=== PATIENT | female | born 1945 | race Caucasian/White ===

== ENCOUNTER → 2020-04-15 09:39 | Outpatient (CLI) | payer OTHER, SELFPAY ==
--- NOTE | ~2020-04-15 | XR_ITS ---
EXAMINATION: XR chest 2V DATE: 04/15/2020 09:53 INDICATION: Shortness of breath. TECHNIQUE: Frontal and lateral views of the chest were obtained. COMPARISON: Chest 2 views 04/26/2018, chest CT 03/26/2009 FINDINGS: There is no pneumonia, pleural effusion, or pneumothorax. Cardiomegaly is noted. IMPRESSION: 1. Cardiomegaly. Reviewed, dictated and finalized at location B. IMPRESSION: 1. Cardiomegaly.
== END ==
PROVIDERS: PCP Family Medicine; Visit Provider Family Medicine
DX: R06.02 Shortness of breath (principal); I51.7 Cardiomegaly
CPT/HCPCS: 71046

== ENCOUNTER → 2020-06-10 11:44 | Outpatient (CLI) | payer OTHER, SELFPAY ==
--- NOTE | ~2020-06-10 | MM_ITS ---
EXAMINATION: MM screening rick BI w miles HISTORY: Screening mammogram TECHNIQUE: Craniocaudal and mediolateral oblique 3-D tomosynthesis images were obtained and synthetic 2-D images were generated. CAD analysis was submitted and interpreted. COMPARISON: , , 09/15/2016 bilateral digital screening mammogram examinations BREAST PARENCHYMAL COMPOSITION: The breasts are heterogeneously dense, which may obscure small masses . FINDINGS: Occasional bilateral benign calcifications. There is no evidence of suspicious mass, calcif ication, or architectural distortion to suggest malignancy in either breast. There has been no suspic ious interval change. IMPRESSION: 1. No mammographic evidence of malignancy. 2. Recommend routine screening mammography in one year. BI-RADS Category 2: Benign finding(s). Reviewed, dictated and finalized at location A.
== END ==
PROVIDERS: PCP Family Medicine; Visit Provider Family Medicine
DX: Z12.31 Encounter for screening mammogram for malignant neoplasm of breast (principal)
CPT/HCPCS: 77063; 77067

== ENCOUNTER 2020-06-15 15:06 | Outpatient (CLI) | payer OTHER, SELFPAY ==
--- NOTE | ~2020-06-15 | US_ITS ---
EXAMINATION: US carotid duplex BI DATE: 06/15/2020 15:40 INDICATION: Presyncope TECHNIQUE: Grayscale, color Doppler, and pulsed Doppler images of the cervical carotid arteries were obtained. The degree of vessel stenosis is placed in one of the following categories: normal, <50%, 5 0-69%, >=70% but less than near-occlusion, near-occlusion, or total occlusion. Note that percent sten osis relative to normal distal artery lumen diameter is indirectly measured from velocity measurement s as described by Orestes, et al. Radiology 2003; [id number]. Notes: Normal: Peak systolic velocity <125 centimeters/sec and no plaque <50%. Peak systolic velocity <125 ( EDV <40; ICA/CCA PSV ratio <2.0; used these factors only a tandem lesions or low cardiac output or co ntralateral disease) 50-69 %: PSV 125-230 (EDV 40-100; ratio 2-4) >= 70% but less than near occlusion: PSV greater than 230 (EDV > 100; ratio> 4.0) Near Occlusion: PSV that is variable; markedly narrowed lumen Occlusion: Absent flow on color/spectral Doppler and no lumen on ramírez scale. COMPARISON: None. FINDINGS: RIGHT: The right common carotid artery (CCA) peak systolic velocity (PSV) is 122 cm/s. The right internal ca rotid artery (ICA) PSV is 123 cm/s. The right ICA end-diastolic velocity (EDV) is 12 cm/s. The right ICA/CCA PSV ratio is 1.0. The external carotid artery (ECA) PSV is 148 cm/s. There is antegrade flow in the right vertebral artery. LEFT: The left CCA PSV is 103 cm/s. The left ICA PSV is 1:15 cm/s. The left ICA EDV is 19 cm/s. The left IC A/CCA PSV ratio is 1.1. The ECA PSV is 107 cm/s. There is antegrade flow in the left vertebral arter y. IMPRESSION: 1. Less than 50% stenosis in the right internal carotid artery by sonographic criteria. 2. Less than 50% stenosis in the left internal carotid artery by sonographic criteria. Reviewed, dictated and finalized at location A. IMPRESSION: 1. Less than 50% stenosis in the right internal carotid artery by sonographic elizabeth melendez. 2. Less than 50% stenosis in the left internal carotid artery by sonographic rosas epps.
== END 2020-06-15 15:07 | disposition home or self-care (01) ==
LOC: ANHIMG 15:08
PROVIDERS: PCP Family Medicine; Visit Provider Family Medicine
DX: R42 Dizziness and giddiness (principal); I65.23 Occlusion and stenosis of bilateral carotid arteries
CPT/HCPCS: 93880

== ENCOUNTER 2020-11-27 09:37 | Emergency (ER) | payer OTHER, SELFPAY ==
--- NOTE | 2020-11-27 09:47 | ED.SKABFB ---
HPI - Skin/Abscess/Foreign Bdy General Chief complaint: Skin/Abscess/Foreign Body Stated complaint: Rash Time Seen by Provider: 11/27/20 09:47 Source: patient and RN notes reviewed Mode of arrival: ambulatory Limitations: no limitations History of Present Illness HPI narrative: 75 yo female presents to the [facility] with a rash that started last Monday, 5 days ago. Patient states I think I have poison hardik. Patient has a red raised warm area to the left inner thigh, states that that is where the rash started. Has multiple red raised areas less than 1 cm in diameter across abdomen. Also has pink flat papules on the right chin into the cheek area. Patient denies any painful areas. States they itch occasionally. Has used calamine on the legs which she said made it better. Denies any new creams, lotions, detergents. No new close, no new exposures Related Data Home Medications Medication Instructions Recorded Confirmed amlodipine 1.5 mg PO DAILY 11/27/20 11/27/20 losartan 1 mg PO DAILY 11/27/20 11/27/20 timolol maleate drp 11/27/20 travoprost drp 11/27/20 Allergies Allergy/AdvReac Type Severity Reaction Status Date / Time No Known Allergies Allergy Uncoded 11/27/20 09:48 Review of Systems Review of Systems: Narrative: CONSTITUTIONAL: Denies fever, chills, or sweats. EYES: Denies visual changes, redness, or discharge. CARDIOVASCULAR: Denies chest pain, palpitations, or edema. RESPIRATORY: Denies cough or dyspnea. SKIN: Reports rash with occasional itching. MUSCULOSKELETAL: Denies back pain, joint pain, or myalgia. NEUROLOGIC: Denies headache, numbness, or weakness. PSYCHIATRIC: Denies anxiety or depression. All other systems reviewed are negative, except as documented in HPI. [facility] Family History Family History (Updated 03/18/16 @ 23:19 by DOCTOR UNKNOWN) Mother Hypertension Carcinoma of colon Family history of dementia Father Family history of diabetes mellitus in first degree relative Other Family history of renal failure Social History Social History Smoking status: Never smoker Alcohol intake: current Gender identity (if verbalized by the patient): Female Comments At the time of my signature, I reviewed and agree with the nursing past medical, surgical, social, and family history. There is no relevant family history pertinent to the patient complaint. Exam Narrative: Exam Narrative: GENERAL: This is a well-nourished, well-developed patient, in no apparent distress. HEAD: normocephalic, atraumatic. EYES: PERRL. Sclera clear/white. Vision is grossly intact. EARS: External ears normal NOSE: External nose normal with no obvious nasal discharge, nares without redness, no rhinorrhea. THROAT: Mucous membranes moist, posterior pharynx clear. NECK: Neck supple, non-tender without lymphadenopathy, masses or thyromegaly. CARDIOVASCULAR: Regular rate and rhythm without murmurs, gallops, or rubs. RESPIRATORY: Clear to auscultation. Breath sounds equal bilaterally. No wheezes, rales, or rhonchi. GASTROINTESTINAL: Abdomen soft, non-tender, nondistended. Bowel sounds are active. No hepato-splenomegaly, or palpable masses. No guarding. SKIN: warm, dry, intact. 2 rashes noted that appeared mildly different. Left inner upper thigh 4 cm diameter red warm raised area appears cellulitic. Across abdomen red raised bumps possible insect bites, are not pustules or vesicular, less than half centimeter in diameter. Right chin, cheek area pink mildly raised irregular shaped approximately 1 cm in diameter rash. NEURO: awake, alert, and oriented to person, place and time. There were no obvious focal neurologic abnormalities. EXTREMITIES: No joint tenderness, effusion, or edema noted. BACK: Nontender without deformity. Course Vital Signs Vital signs: Vital Signs Temperature 97.0 F L 11/27/20 09:54 Pulse Rate 68 11/27/20 09:54 Respiratory Rate 18
[2020-11-27 09:54] VITALS: BP 129/95; PULSE 68; RESP 18; TEMP 36.1; O2SAT 100
== END 2020-11-27 10:18 | disposition home or self-care (01) ==
PROVIDERS: Emergency Provider Nurse Practitioner; PCP Student in an Organized Health Care Education/Training Program
DX: L03.115 Cellulitis of right lower limb (principal); R21 Rash and other nonspecific skin eruption; I10 Essential (primary) hypertension; H40.9 Unspecified glaucoma
CPT/HCPCS: 99213; G0463

== ENCOUNTER 2020-11-30 13:54 | Emergency (ER) | payer OTHER, SELFPAY ==
[2020-11-30 14:12] VITALS: BP 167/65; PULSE 75; RESP 16; TEMP 36.4; O2SAT 100
--- NOTE | 2020-11-30 14:14 | ED.SKABFB ---
HPI - Skin/Abscess/Foreign Bdy General Chief complaint: Skin/Abscess/Foreign Body Stated complaint: Rash Time Seen by Provider: 11/30/20 14:14 History of Present Illness HPI narrative: The aging patient, on several medication, presents for cellulitis recheck. Patient states she was seen here about a half a week ago and given Bactrim, prednisone and steroid cream for diagnosis of cellulitis. Specifically, she had a palm sized patch of redness on her left inner thigh, which has actually improved since. But she had a impetiginous outbreak on her right face which has gotten slightly worse. No fever, presyncope, palpitations, streaking, discharge, induration/abscess; there is associated macular papular discrete, blanching eruption on her trunk coincident with this. Discussed the next stronger option is for hospital visit or parenteral/IM meds here-which the patient desires. Advised to go to higher-level care facility to higher level testing if not improved by tomorrow, because for early diagnosis of serious problems-- clear specific symptoms do not develope until later. Patient responds she has gotten a PMD appointment for 2 days from now Related Data Home Medications Medication Instructions Recorded Confirmed amlodipine 1.5 mg PO DAILY 11/27/20 11/27/20 losartan 1 mg PO DAILY 11/27/20 11/27/20 timolol maleate drp 11/27/20 travoprost drp 11/27/20 Otc Luicin 11/30/20 Otc Vit. D 11/30/20 hydrochlorothiazide 11/30/20 Allergies Allergy/AdvReac Type Severity Reaction Status Date / Time No Known Allergies Allergy Uncoded 11/27/20 09:48 Review of Systems Review of Systems: Narrative: General/Constitutional: No weight loss,fever Eyes: N0: Redness,discharge Ears/Nose/Throat: No: Epistaxis,ear discharge Respiratory: Denies: Hemoptysis Gastrointestinal: No Vomiting, Bleeding-rectal Skin: No Lumps, REPORTS eruption Neurologic: No Focal Weakness,Sz Hematologic: Denies: Petechiae/Purpura Psychiatric: No: Suicida ideationl All Other Systems: Reviewed and Negative [facility] Family History Family History (Updated 03/18/16 @ 23:19 by DOCTOR UNKNOWN) Mother Hypertension Carcinoma of colon Family history of dementia Father Family history of diabetes mellitus in first degree relative Other Family history of renal failure Social History Social History Smoking status: Never smoker Alcohol intake: current Gender identity (if verbalized by the patient): Female Comments At time of signature, agree with nursing past medical, surgical, social and family history. There is no relevant family history pertinent to the presenting complaint Exam Narrative: Exam Narrative: General Appearance: Well appearing, No distress Conjunctiva clear Ears: External ear normal Nose: Normal nose Mouth/Throat: Impetiginous eruption on right jawline and cheek; normal lips, Supple Skin: Warm, Dry; blanching, maculopapular eruption of lower trunk/abdomen Respiratory: Airway patent, No respiratory distress Abdomen: Soft, Non-tender, Musculoskeletal: Healing palm-sized area of cellulitis to left inner thigh without induration/abscess/, streaking ; full ROM Neurological: A&O x3, CN II-X intact Psychiatric: Normal mood, Normal affect Course Vital Signs Vital signs: Vital Signs Temperature 97.6 F 11/30/20 14:12 Pulse Rate 75 11/30/20 14:12 Respiratory Rate 16 11/30/20 14:12 Blood Pressure 167/65 H 11/30/20 14:12 Pulse Oximetry 100 11/30/20 14:12 Temperature 97.6 F 11/30/20 14:12 Pulse Rate 75 11/30/20 14:12 Respiratory Rate 16 11/30/20 14:12 Blood Pressure 167/65 H 11/30/20 14:12 Pulse Oximetry 100 11/30/20 14:12 Discharge Plan Discharge Clinical Impression: Infectious folliculitis, History of cellulitis Patient Disposition: Home, Self-Care Condition: Stable Instructions: Impetigo (ED) Additional Instructions: You
[2020-11-30] MEDS: cefTRIAXone 1 GM VIAL 0.75 GM IM (14:28)
--- NOTE | 2020-11-30 14:36 | PC.NURSE ---
rash to right side of lower face, right arm, right hand, and right hip area that is reddened splotchy, intermittently itchy, and irritating. has rash b/t inner upper thighs that is circular, reddened, about 3 cm in diameter.
== END 2020-11-30 15:00 | disposition home or self-care (01) ==
PROVIDERS: Emergency Provider Emergency Medicine; PCP Student in an Organized Health Care Education/Training Program
DX: L73.9 Follicular disorder, unspecified (principal); Z87.2 Personal history of diseases of the skin and subcutaneous tissue; I10 Essential (primary) hypertension; M19.90 Unspecified osteoarthritis, unspecified site; H40.9 Unspecified glaucoma; Z95.0 Presence of cardiac pacemaker
CPT/HCPCS: 96372; 99213; G0463; J0696

== ENCOUNTER → 2021-10-26 12:36 | Outpatient (CLI) | payer OTHER, SELFPAY ==
--- NOTE | ~2021-10-26 | MM_ITS ---
EXAMINATION: MM screening rick BI w miles HISTORY: Screening TECHNIQUE: Craniocaudal and mediolateral oblique 3-D tomosynthesis images were obtained and synthetic 2-D images were generated. CAD analysis was submitted and interpreted. COMPARISON: Comparison to multiple prior studies sequentially, with oldest reviewed study dated 02/2015. BREAST PARENCHYMAL COMPOSITION: The breasts are heterogenously dense, which may obscure small masses FINDINGS: There is developing asymmetries in the subareolar and outer aspect of the left breast. The right breast is stable without evidence for malignancy. IMPRESSION: 1. Developing left breast asymmetries. 2. Additional mammographic views and possible breast ultrasound are recommended. BI-RADS Category 0: Incomplete: Needs additional imaging evaluation. Reviewed, dictated and finalized at location A. E SETTER IMPRESSION: 1. Developing left breast asymmetries. 2. Additional mammographic views and possible breast ultrasound are recommended . BI-RADS Category 0: Incomplete: Needs additional imaging evaluation.
== END ==
PROVIDERS: Visit Provider Student in an Organized Health Care Education/Training Program
DX: Z12.31 Encounter for screening mammogram for malignant neoplasm of breast (principal); R92.8 Other abnormal and inconclusive findings on diagnostic imaging of breast
CPT/HCPCS: 77063; 77067

== ENCOUNTER → 2021-11-25 07:55 | Outpatient (CLI) | payer OTHER, SELFPAY ==
--- NOTE | ~2021-11-25 | MMUS_ITS ---
EXAMINATION: MM diagnostic rick LT w miles, US breast LT complete HISTORY: Follow-up left breast asymmetries TECHNIQUE: Additional 3-D tomosynthesis images of the left breast were performed and synthetic 2-D im ages were generated. CAD analysis was submitted and interpreted. High resolution complete left breast ultrasound was performed. COMPARISON: Comparison to multiple prior studies sequentially, with oldest reviewed study dated 08/31. BREAST PARENCHYMAL COMPOSITION: Breast composed of scattered areas of fibroglandular density FINDINGS: MAMMOGRAPHIC FINDINGS: There are no discrete masses, suspicious cluster of calcifications or architectural distortion of the left breast with spot compression or mediolateral views. ULTRASOUND: Complete US of all 4 quadrants of the the left and retroareolar region was reviewed. At 12:00, 2 cm f rom the nipple there is an oval circumscribed hypoechoic mass measuring 10 x 5 x 3 mm with central ec hogenicity possibly representing an intramammary lymph node. No posterior shadowing or internal vascu larity. At 1:00, 4 cm from the nipple there is a 5 mm cyst. At 3:00, 5 cm from the nipple there is an oval circumscribed hypoechoic mass with echogenic hilum measuring 5 mm, consistent with intramammary lymph node. IMPRESSION: 1. Probable benign findings of the left breast. 2. Recommend 6 month follow-up diagnostic left mammogram and ultrasound BI-RADS category 3, probably benign findings. Reviewed, dictated and finalized at location A. IMPRESSION: 1. Probable benign findings of the left breast. 2. Recommend 6 month follow-up diagnostic left mammogram and ultrasound BI-RADS category 3, probably benign findings.
== END ==
PROVIDERS: PCP Student in an Organized Health Care Education/Training Program; Visit Provider Registered Nurse
DX: R92.8 Other abnormal and inconclusive findings on diagnostic imaging of breast (principal)
CPT/HCPCS: 76641; 77061; 77065; G0279

== ENCOUNTER → 2022-05-26 09:14 | Outpatient (CLI) | payer OTHER, SELFPAY ==
--- NOTE | ~2022-05-26 | MMUS_ITS ---
EXAMINATION: MM diagnostic rick LT w miles, US breast LT limited HISTORY: Six-month follow-up for probably benign left breast masses TECHNIQUE: Craniocaudal, mediolateral, and mediolateral oblique 3-D tomosynthesis images of the left breast were performed and synthetic 2-D images were generated. CAD analysis was submitted and interpr eted. High resolution limited left breast ultrasound was performed. COMPARISON: 11/25/2021, 10/26/2021, 06/10/2020, 12/13/2018 BREAST PARENCHYMAL COMPOSITION: The breasts are heterogeneously dense, which may obscure small masses . FINDINGS: MAMMOGRAPHIC FINDINGS: No suspicious mass, calcification, or architectural distortion are identified to suggest malignancy. There has been no suspicious interval change. ULTRASOUND: There is a stable 9 mm right 2 mm oval, circumscribed, parallel, hypoechoic mass with no posterior fe atures or internal vascularity at the 12:00 location 2 cm from the nipple. A 5 mm x 2 mm mass with si milar sonographic features is seen at the 1:00 location 4 cm from the nipple. There is a stable 5 mm x 2 mm mass with central echogenicity at the 3:00 location 5 cm from the nipple, consistent with an i ntramammary lymph node. IMPRESSION: 1. Stable, probably benign left breast masses. 2. Recommend 6 month follow-up diagnostic mammogram and left breast ultrasound. BI-RADS category 3, probably benign findings. Reviewed, dictated and finalized at location B. IMPRESSION: 1. Stable, probably benign left breast masses. 2. Recommend 6 month follow-up diagnostic mammogram and left breast ultrasound. BI-RADS category 3, probably benign findings.
== END ==
PROVIDERS: PCP Student in an Organized Health Care Education/Training Program; Visit Provider Student in an Organized Health Care Education/Training Program
DX: R92.8 Other abnormal and inconclusive findings on diagnostic imaging of breast (principal)
CPT/HCPCS: 76642; 77061; 77065; G0279

== ENCOUNTER → 2022-12-19 09:20 | Outpatient (CLI) | payer OTHER, SELFPAY ==
--- NOTE | ~2022-12-19 | MMUS_ITS ---
EXAMINATION: MM diagnostic rick BI w miles, US breast LT limited HISTORY: Six-month follow-up for probably benign left breast masses TECHNIQUE: Craniocaudal, mediolateral, and mediolateral oblique 3-D tomosynthesis images of the scott ts were performed and synthetic 2-D images were generated. CAD analysis was submitted and interpreted . High resolution limited left breast ultrasound was performed. COMPARISON: 05/26/2022, 11/25/2021, 10/26/2021, 06/10/2020 BREAST PARENCHYMAL COMPOSITION: The breasts are heterogeneously dense, which may obscure small masses . FINDINGS: MAMMOGRAPHIC FINDINGS: No suspicious mass, calcification, or architectural distortion are identified in either breast to sug gest malignancy. There has been no suspicious interval change. ULTRASOUND: A 6 mm x 2 mm oval, circumscribed, parallel, hypoechoic mass with no posterior features or internal v ascularity at the 12:00 location, 2 cm from the nipple has decreased in size. There is a stable 5 mm x 2 mm mass with similar sonographic features at the 1:00 location 3 cm from the nipple. There is a s table 5 mm mass at the 3:00 location, 5 cm from the nipple. IMPRESSION: 1. Stable to decreased, probably benign left breast masses. 2. Given one year of interval stability, recommend 12 month followup bilateral diagnostic mammogram a nd left breast ultrasound. BI-RADS category 3, probably benign findings. Reviewed, dictated and finalized at location A. IMPRESSION: 1. Stable to decreased, probably benign left breast masses. 2. Given one year of interval stability, recommend 12 month followup bilateral diagnostic mammogram and left breast ultrasound. BI-RADS category 3, probably benign findings.
== END ==
PROVIDERS: PCP Student in an Organized Health Care Education/Training Program; Visit Provider Student in an Organized Health Care Education/Training Program
DX: R92.8 Other abnormal and inconclusive findings on diagnostic imaging of breast (principal)
CPT/HCPCS: 76642; 77062; 77066; G0279

== ENCOUNTER 2023-12-21 09:15 | Outpatient (CLI) | payer OTHER, SELFPAY ==
--- NOTE | ~2023-12-21 | MMUS_ITS ---
EXAMINATION: MM diagnostic rick BI w miles, US breast LT limited HISTORY: 12 month follow-up left breast. Screening of right breast. TECHNIQUE: MLO, MLO and CC 3-D tomosynthesis images of both breasts were performed and synthetic 2-D images were generated. CAD analysis was submitted and interpreted. High resolution limited left breas t ultrasound was performed. COMPARISON: 12/19/2022 diagnostic bilateral Limited left breast ultrasound 05/26/2022 diagnostic left mammogram and Limited left breast ultrasound diagnostic left mammogram and complete left breast ultrasound 10/26/2021 bilateral screening mammogram BREAST PARENCHYMAL COMPOSITION: The breasts are heterogeneously dense, which may obscure small masses . FINDINGS: MAMMOGRAPHIC FINDINGS: Occasional bilateral benign calcifications, including partially calcified appr oximately 6 mm upper outer quadrant right breast probable benign fibroadenoma. No suspicious mass or architectural distortion, malignant calcification, skin thickening or retractio n or significant new or developing density is detected. ULTRASOUND: Limited follow-up breast ultrasound was performed with attention to the areas reported on 12/19/2022 Re pal left breast ultrasound examination: 12:00 2 cm from nipple: 3 x 5 x 8 mm Well-circumscribed hypoechoic area without internal vascularity or posterior shadowing, benign in appearance. This measured approximately 2.7 x 4 x 7 mm on 12/19/2022, minimally changed. 1:00 3 cm from nipple: Well-circumscribed hypoechoic 2.1 x 3.6 x 4.7 mm lesion without internal vasc ularity posterior shadowing, benign in appearance. No significant change since 12/19/2022 Calcified approximately 2 x 5.5 x 5.7 mm lesion with some posterior shadowing is result of the calcif ication. No internal vascularity. This corresponds to a mammographic calcification in similar positio n. No significant change since 12/19/2022 2:00 subareolar area: 2 x 5.6 x 4.2 mm cyst No suspicious mass or shadowing is evident. IMPRESSION: 1. Benign findings several mesentery unchanged since 12/19/2022 2. Routine annual mammographic screening is recommended BI-RADS Category 2: Benign finding(s). Reviewed, dictated and finalized at location A. IMPRESSION: 1. Benign findings several mesentery unchanged since 12/19/2022 2. Routine annual mammographic screening is recommended BI-RADS Category 2: Benign finding(s).
== END 2023-12-21 09:16 ==
LOC: MICIMG 09:16
PROVIDERS: PCP Student in an Organized Health Care Education/Training Program; Visit Provider Student in an Organized Health Care Education/Training Program
DX: R92.8 Other abnormal and inconclusive findings on diagnostic imaging of breast (principal)
CPT/HCPCS: 76642; 77062; 77066; G0279

== ENCOUNTER 2025-02-13 11:26 | Outpatient (CLI) | payer OTHER, SELFPAY ==
--- NOTE | ~2025-02-13 | MM_ITS ---
EXAMINATION: MM screening rick BI w miles HISTORY: Screening mammogram TECHNIQUE: Craniocaudal and mediolateral oblique 3-D tomosynthesis images were obtained and synthetic 2-D images were generated. CAD analysis was submitted and interpreted. COMPARISON: 12/21/2023, 12/19/2022, 05/26/2022, 11/25/2021 BREAST PARENCHYMAL COMPOSITION:Not Dense. There are scattered areas of fibroglandular density. FINDINGS: No suspicious mass, calcification, or architectural distortion are identified in either radha ast to suggest malignancy. There has been no suspicious interval change. IMPRESSION: No mammographic evidence of malignancy. Recommend routine screening mammography in one year. BI-RADS Category 1: Negative Reviewed, dictated and finalized at location .
== END 2025-02-13 11:27 | disposition home or self-care (01) ==
LOC: MICIMG 11:28
PROVIDERS: PCP Student in an Organized Health Care Education/Training Program; Visit Provider Student in an Organized Health Care Education/Training Program
DX: Z12.31 Encounter for screening mammogram for malignant neoplasm of breast (principal)
CPT/HCPCS: 77063; 77067

== ENCOUNTER 2025-08-16 17:57 | Emergency (ER) | payer OTHER, SELFPAY ==
--- OUTSIDE RECORDS SUMMARY | 2025-07-02 04:13 | XMS_ITS | Continuity of Care Document ---
Author Organization [email or web address] Address [address] [facility] [address] [place] [address] Phone Care Team Providers Care Ophthalmic Surgeon Name Role Phone Sorce OD, Jorden Unavailable Unavailable Allergies, Adverse Reactions, Alerts Substance Reaction Status Criticality No Known Allergies Active No Inform ation Medications Medication Instructions Dosage Effective Dates (start - stop) Status Comments timolol maleate 0.5 % eye drops instill 1 drop by intraocular route 2 times every day in each eye 1 drop - Active brimonidine 0.2 % eye drops instill 1 drop by ophthalmic route 2 times every day into both eyes 1 drop - Active amlodipine 5 mg tablet - Act shiraz losartan 100 mg tablet - Act shiraz hydrochlorothiazide 12.5 mg tablet - Active melatonin 3 mg capsule as needed - Active Tylenol Extra Strength 500 mg tablet take 2 tablet by oral route every 4 - 6 hours as needed not to exceed 8 tablets per 24hrs 1000 MG - Active cholecalciferol (vitamin D3) 25 mcg (1,000 unit) tablet Take 1,000 Units by mouth daily. - Active rosuvastatin 5 mg tablet take 1 tablet b y oral route every day 5 MG - Active Procedures Procedure Date VISUAL FIELD- EXTENDED EYE EXAM ESTABLISHED PAT GDX Optic Nerve REVISE EYELASHES OFFICE/OUTPATIENT VISIT, EST REVISE EYELASHES FUNDUS PHOTOGRAPHY OFFICE/OUTPATIENT VISIT, EST VISUAL FIELD- EXTENDED OFFICE/OUTPATIENT VISIT, EST GDX Optic Nerve EYE EXAM ESTABLISHED PAT FUNDUS PHOTOGRAPHY EYE EXAM ESTABLISHED PAT VISUAL FIELD- EXTENDED OFFICE/OUTPATIENT VISIT, EST REFRACTION GDX Optic Nerve EYE EXAM ESTABLISHED PAT EYE EXAM ESTABLISHED PAT REVISE EYELASHES EYE EXAM ESTABLISHED PAT FUNDUS PHOTOGRAPHY REVISE EYELASHES EYE EXAM ESTABLISHED PAT VISUAL FIELD- EXTENDED REVISE EYELASHES EYE EXAM ESTABLISHED PAT FUNDUS PHOTOGRAPHY OFFICE/OUTPATIENT VISIT, EST GDX Optic Nerve EYE EXAM ESTABLISHED PAT VISUAL FIELD- EXTENDED EYE EXAM ESTABLISHED PAT FUNDUS PHOTOGRAPHY EYE EXAM ESTABLISHED PAT REVISE EYELASHES GDX Optic Nerve EYE EXAM ESTABLISHED PAT VISUAL FIELD- EXTENDED REVISE EYELASHES EYE EXAM ESTABLISHED PAT No Charge Visit Advance Directives Directive Yes / No Effective Date File Name No Information Encounters Encounter Description Practice Location Reason(s) For Visit Diagnoses Date Provider Providers Copied on Encounter [facility], [address] [place] [address], [id number], [place] tel:[phone] [facility] No Information 5 Harmeet Jorden. [address] [place], [place], [id number], [place]. tel:[phone] Referring Provider: Primo Byers, [address] [place] [address], [address], [place], [address]. tel:[phone] [facility], [address] [place] [address], [id number], tel:[phone] [facility] Glaucoma (chief complaint)r edness and itching (chief complaint) Primary open-angle glaucoma, bilateral, moderate stagePaving stone degeneration of retina, bilateralUnsp ecified ptosis of left eyelidDry eye syndrome of bilateral lacrimal glandsPresenc e of intraocular lensPVD (posterior vitreous detachment), both eyesTrichiasi s without entropion right lower eyelid Oct-2 5 Sorce Jorden. [address] [place] [address], [id number], [place]. tel:[phone] Referring Provider: Priom Byers, [address] [place] [address], [address], [place], [address]. tel:[phone] OFFICE/OUTPA TIENT VISIT, EST [facility], [address] [place] [address], [id number], [place] tel:[phone] [facility] Glaucoma, followup (chief complaint)I rritation, eyelids (chief complaint) Primary open-angle glaucoma, bilateral, moderate stageDry eye syndrome of bilateral lacrimal glandsUnspeci fied ptosis of left eyelidPresenc e of intraocular lensPaving stone degeneration of retina, bilateralChal azion of left upper eyelidTrichia sis without entropion right lower eyelid Gerry-2 0- 5 Sorce Jorden. [address] [place], [place], [id number], [place]. tel:[phone] Referring Provider: Primo Byers, [address] [place] [address], [address], [place], [address]. tel:[phone] [facility], [address] [place] [address], [id number], [place] tel:[phone] [facility] No Information Gerry-0 5- 5 Sorce Jorden. [address] [place], [place], [id number], [place]. tel:[phone] OFFICE/OUTPA TIENT VISIT, [facility], [address] [place] [address], [id number], tel:[phone] [facility] Glaucoma (chief complaint)i rritation (chief complaint) Primary open-angle glaucoma, bilateral, moderate stageTrichias is without entropion right lower eyelidPaving stone degeneration of retina, bilateralDry eye syndrome of bilateral lacrimal glandsUnspeci fied ptosis of left eyelidPresenc e of intraocular lens Sep- 5 [facility]. [address] [place] [address], [id number], [place]. tel:[phone] Referring Provider: Primo Byers, [address] [place] [address], [address], [place], [address]. tel:[phone] OFFICE/OUTPA TIENT VISIT, [facility], [address] [place] [address], [id number], tel:[phone] [facility] Glaucoma (chief complaint)I rritation (chief complaint) Primary open-angle glaucoma, bilateral, moderate stagePaving stone degeneration of retina, bilateralDry eye syndrome of bilateral lacrimal glandsUnspeci fied ptosis of left eyelidPresenc e of intraocular lensTrichiasi s without entropion right lower eyelidAllergi c dermatitis of right lower eyelid May- 4 [facility]. [address] [place] [address], [id number], [place]. tel:[phone] Referring Provider: Primo Byers, [address] [place] [address], [address], [place], [address]. tel:[phone] [facility], [address] [place] [address], [id number], tel:[phone] [facility] Glaucoma (chief complaint) Primary open-angle glaucoma, bilateral, moderate stageDry eye syndrome of bilateral lacrimal glandsPaving stone degeneration of retina, bilateralUnsp ecified ptosis of left eyelidPresenc e of intraocular lens 4 Harmeet Leonardo. [address] [place] [address], [id number], [place]. tel:[phone] Referring Provider: Primo Byers, [address] [place] [address], [address], [place], [address]. tel:[phone] [facility], [address] [place] [address], [id number], [place] tel:[phone] [facility] Glaucoma (chief complaint)b lurry vision (chief complaint) Primary open-angle glaucoma, bilateral, moderate stageDry eye syndrome of bilateral lacrimal glandsPaving stone degeneration of retina, bilateralUnsp ecified ptosis of left eyelidPresenc e of intraocular lens 4 Harmeet Leonardo. [address] [place] [address], [id number], [place]. tel:[phone] Referring Provider: Jorden Ga, [address] [place] [address], [id number] . tel:[phone] OFFICE/OUTPA TIENT VISIT, [facility], [address] [place] [address], [id number], [place] tel:[phone] [facility] Glaucoma (chief complaint)n ot happy with glasses (chief complaint) Primary open-angle glaucoma, bilateral, moderate stageDry eye syndrome of bilateral lacrimal glandsPaving stone degeneration of retina, bilateralUnsp ecified ptosis of left eyelidPresenc e of intraocular lensPresbyopi a 3 Harmeet Leonardo. [address] [place] [address], [id number], [place]. tel:[phone] Referring Provider: Primo Byers, [address] [place] [address], [address], [place], [address]. tel:[phone] [facility], [address] [place] [address], [id number], [place] tel:[phone] [facility] Glaucoma F/U (chief complaint)B lurry Vision (chief complaint) PresbyopiaPri manuel open-angle glaucoma, bilateral, moderate stagePaving stone degeneration of retina, bilateralDry eye syndrome of bilateral lacrimal glandsUnspeci fied ptosis of left eyelidPresenc e of intraocular lens 3 Sorce Jorden. [address] [place], [place], [id number], [place]. tel:[phone] Referring Provider: Primo Byers, [address] [place] [address], [address], [place], [address]. tel:[phone] [facility], [address] [place] [address], [id number], [place] tel:[phone] [facility] Glaucoma (chief complaint) Primary open-angle glaucoma, bilateral, moderate stagePaving stone degeneration of retina, bilateralDry eye syndrome of bilateral lacrimal glandsUnspeci fied ptosis of left eyelidPresenc e of intraocular lens 3 Sorce Jorden. [address] [place] [address], [id number], [place]. tel:[phone] Referring Provider: Primo Byers, [address] [place] [address], [address], [place], [address]. tel:[phone] [facility], [address] [place] [address], [id number], [place] tel:[phone] [facility] Irritation (chief complaint) Primary open-angle glaucoma, bilateral, moderate stagePaving stone degeneration of retina, bilateralTric hiasis without entropion right lower eyelidDry eye syndrome of bilateral lacrimal glandsUnspeci fied ptosis of left eyelid 3 Sorce Jorden. [address] [place], [place], [id number], [place]. tel:[phone] Referring Provider: Primo Byers, [address] [place] [address], [address], [place], [address]. tel:[phone] [facility], [address] [place] [address], [id number], tel:[phone] [facility] No Information 2 Jayesh [place]. [address], [address], [place], [place], [id number], [place]. tel:[phone] [facility], [address] [place] [address], [id number], [place] tel:[phone] [facility] Glaucoma F/U (chief complaint)B lurry Vision (chief complaint)I rritation (chief complaint) Primary open-angle glaucoma, bilateral, moderate stagePaving stone degeneration of retina, bilateralDry eye syndrome of bilateral lacrimal glandsUnspeci fied ptosis of left eyelidPresenc e of intraocular lensTrichiasi s without entropion right lower eyelid Jul- 2 [facility]. [address] [place] [address], [id number], [place]. tel:[phone] Referring Provider: Primo Byers, [address] [place] [address], [address], [place], [address]. tel:[phone] [facility], [address] [place] [address], [id number], [place] tel:[phone] [facility] Glaucoma F/U (chief complaint)I rritation (chief complaint)B lurry Vision (chief complaint)D ry Eye (chief complaint) Primary open-angle glaucoma, bilateral, moderate stagePaving stone degeneration of retina, bilateralDry eye syndrome of bilateral lacrimal glandsUnspeci fied ptosis of left eyelidPresenc e of intraocular lensTrichiasi s without entropion right lower eyelid 2 [facility]. [address] [place] [address], [id number], [place]. tel:[phone] Referring Provider: Primo Byers, [address] [place] [address], [address], [place], [address]. tel:[phone] OFFICE/OUTPA TIENT VISIT, EST [facility], [address] [place] [address], [id number], [place] tel:[phone] [facility] Glaucoma, followup (chief complaint) Primary open-angle glaucoma, bilateral, moderate stageDry eye syndrome of bilateral lacrimal glandsUnspeci fied ptosis of left eyelidPresenc e of intraocular lensPaving stone degeneration of retina, bilateral Apr-2 2 Harmeet Jorden. [address] [place] [address], [id number], . tel:[phone] Referring Provider: Jorden Ga, [address] [place] [address], [id number] . tel:[phone] [facility], [address] [place] [address], [id number], tel:[phone] [facility] Glaucoma, followup (chief complaint) Primary open-angle glaucoma, bilateral, moderate stageDry eye syndrome of bilateral lacrimal glandsUnspeci fied ptosis of left eyelidPresenc e of intraocular lens Dec-0 1 Harmeet Jorden. [address] [place] [address], [id number], . tel:[phone] Referring Provider: Jorden Ga, [address] [place] [address], [id number] . tel:[phone] [facility], [address] [place] [address], [id number], tel:[phone] [facility] Glaucoma (chief complaint) Primary open-angle glaucoma, bilateral, moderate stageDry eye syndrome of bilateral lacrimal glandsUnspeci fied ptosis of left eyelidPresenc e of intraocular lens Mar-0 1 Harmeet Dangig. [address] [place] [address], [id number], [place]. tel:[phone] Referring Provider: Primo Byers, [address] [facility], [address], [place], [address]. tel:[phone] [facility], [address] [place] [address], [id number], tel:[phone] [facility] Glaucoma (chief complaint) Primary open-angle glaucoma, bilateral, moderate stageDry eye syndrome of bilateral lacrimal glandsUnspeci fied ptosis of left eyelidPresenc e of intraocular lens Nov-0 2-202 1 Sorce Jorden. [address] [place], [place], [id number], [place]. tel:[phone] Referring Provider: Primo Byers, [address] [place] [address], [address], [place], [address]. tel:[phone] [facility], [address] [place] [address], [id number], [place] tel:[phone] [facility] 4 Month POAG Exam (chief complaint) Primary open-angle glaucoma, bilateral, moderate stageTrichias is without entropion right lower eyelidDry eye syndrome of bilateral lacrimal glandsUnspeci fied ptosis of left eyelidPresenc e of intraocular lensUnspecifi ed subjective visual disturbances Nov-2 0-202 0 Sorce Jorden. [address] [place] [address], [id number], [place]. tel:[phone] Referring Provider: Primo Byers, [address] [place] [address], [address], [place], [address]. tel:[phone] [facility], [address] [place] [address], [id number], [place] tel:[phone] [facility] Glaucoma (chief complaint) Primary open-angle glaucoma, bilateral, moderate stageTrichias is without entropion right lower eyelidDry eye syndrome of bilateral lacrimal glandsUnspeci fied ptosis of left eyelid Dean-1 0-202 0 Sorce Jorden. [address] [place] [address], [id number], [place]. tel:[phone] [facility], [address] [place] [address], [id number], [place] tel:[phone] [facility] Glaucoma (chief complaint) Presence of intraocular lensPrimary open-angle glaucoma, bilateral, moderate stageTrichias is without entropion right lower eyelidDry eye syndrome of bilateral lacrimal glandsUnspeci fied ptosis of left eyelid Mar-0 6-202 0 Sorce Jorden. [address] [place], [place], [id number], [place]. tel:[phone] [facility], [address] [place] [address], [id number], tel:[phone] [facility] No Information Oct-0 5- 0 [facility] [address], [id number], . tel:[phone] [facility], [address] [place] [address], [id number], tel:[phone] [facility] Primary open-angle glaucoma, bilateral, moderate stageTrichias is without entropion right lower eyelidGlaucom atous optic atrophy, right eyeDry eye syndrome of bilateral lacrimal glandsUnspeci fied ptosis of left eyelidPresenc e of intraocular lens [address], [id number], . tel:[phone] [facility], [address] [place] [address], [id number], tel:[phone] [facility] Trichiasis without entropion right lower eyelidPrimary open-angle glaucoma, bilateral, moderate stageGlaucoma tous optic atrophy, right eyeUnspecifie d ptosis of left eyelidDry eye syndrome of bilateral lacrimal glandsPresenc e of intraocular lensFilamenta ry keratitis, right eye [address], [id number], . tel:[phone] [facility], [address] [place] [address], [id number], tel:[phone] [facility] Trichiasis without entropion right lower eyelidPrimary open-angle glaucoma, bilateral, moderate stageGlaucoma tous optic atrophy, right eyeUnspecifie d ptosis of left eyelidDry eye syndrome of bilateral lacrimal glandsPresenc e of intraocular lens [address], [id number], [place]. tel:[phone] [facility], [address] [place] [address], [id number], tel:[phone] [facility] Trichiasis without entropion left upper eyelidPrimary open-angle glaucoma, bilateral, moderate stageGlaucoma tous optic atrophy, right eyeUnspecifie d ptosis of left eyelidDry eye syndrome of bilateral lacrimal glandsPresenc e of intraocular lens Harmeet [address], [id number], [place]. tel:[phone] [facility], [address] [place] [address], [id number], tel:[phone] [facility] Trichiasis without entropion right lower eyelidPrimary open-angle glaucoma, bilateral, moderate stageGlaucoma tous optic atrophy, right eyeUnspecifie d ptosis of left eyelidDry eye syndrome of bilateral lacrimal glandsPresenc e of intraocular lens [facility] [address], [id number], [place]. tel:[phone] [facility], [address] [place] [address], [id number], tel:[phone] [facility] Unspecified ptosis of left eyelidPrimary open-angle glaucoma, bilateral, moderate stageGlaucoma tous optic atrophy, right eyeDry eye syndrome of bilateral lacrimal glandsPresenc e of intraocular lens Harmeet Dang[address], [id number], [place]. tel:[phone] [facility], [address] [place] [address], [id number], tel:[phone] [facility] Primary open-angle glaucoma, bilateral, moderate stageGlaucoma tous optic atrophy, right eyeDry eye syndrome of bilateral lacrimal glandsPresenc e of intraocular lens Raimundoce Jorden[address], [id number], [place]. tel:[phone] [facility], [address] [place] [address], [id number], tel:[phone] [facility] Trichiasis without entropion right lower eyelidPrimary open-angle glaucoma, bilateral, moderate stageGlaucoma tous optic atrophy, right eyeDry eye syndrome of bilateral lacrimal glandsPresenc e of intraocular lens 7 Sorce Jorden. [address] [place] [address], [id number], [place]. tel:[phone] [facility], [address] [place] [address], [id number], tel:[phone] [facility] Primary open-angle glaucoma, bilateral, moderate stageGlaucoma tous optic atrophy, right eyeDry eye syndrome of bilateral lacrimal glandsPresenc e of intraocular lens 7 Sorce Jorden. [address] [place] [address], [id number], [place]. tel:[phone] [facility], [address] [place] [address], [id number], tel:[phone] [facility] Primary open-angle glaucoma, bilateral, moderate stageGlaucoma tous optic atrophy, right eyeDry eye syndrome of bilateral lacrimal glandsPresenc e of intraocular lens 7 Sorce Jorden. [address] [place] [address], [id number], [place]. tel:[phone] [facility], [address] [place] [address], [id number], [place] tel:[phone] [facility] Primary open-angle glaucoma, moderate stageGlaucoma tous optic atrophy, right eyeDry eye syndrome of bilateral lacrimal glandsPresenc e of intraocular lens 6 Sorce Jorden. [address] [place] [address], [id number], [place]. tel:[phone] [facility], [address] [place] [address], [id number], [place] tel:[phone] [facility] Glaucomatous optic atrophy, right eyePrimary open-angle glaucoma, moderate stageDry eye syndrome of bilateral lacrimal glandsPresenc e of intraocular lens December-0 6 Sorjonathon Dangig. [address] [place], [place], [id number], [place]. tel:[phone] [facility], [address] [place] [address], [id number], [place] tel:[phone] [facility] Dry eye syndrome of bilateral lacrimal glandsPrimary open-angle glaucoma, moderate stagePresence of intraocular lens Aug-0 6 Sorjonathon Dangig. [address] [place] [address], [id number], [place]. tel:[phone] [facility], [address] [place] [address], [id number], tel:[phone] [facility] PRIM OPEN ANGLE GLAUCOMALENS REPLACEMENT NECFILAMENTAR Y KERATITIS Apr-0 5 [facility] [place]. [address] [place] [address], [id number], [place]. tel:[phone] [facility], [address] [place] [address], [id number], tel:[phone] [facility] PRESBYOPIASUR IHSAN FOLLOW-UPSURG JOSHUA FOLLOW-UPSURG JOSHUA FOLLOW-UPPRIM OPEN ANGLE GLAUCOMA December-0 5 Harmeet Dangig. [address] [place] [address], [id number], [place]. tel:[phone] [facility], [address] [place] [address], [id number], tel:[phone] [facility] SURGERY FOLLOW-UPSURG JOSHUA FOLLOW-UPAFTR -CATAR OBSCUR VISION Apr-2 2- 5 [facility] Rashawn[facility] [address] [place], [place], [id number], [place]. tel:[phone] [facility], [address] [place] [address], [id number], tel:[phone] [facility] SURGERY FOLLOW-UPAFTR -CATAR OBSCUR VISIONSURGERY FOLLOW-UP 0 2- 5 Harmeet Leonardo. [address] [place], [place], [id number], [place]. tel:[phone] [facility], [address] [place] [address], [id number], [place] tel:[phone] [facility] SURGERY FOLLOW-UPSURG JOSHUA FOLLOW-UPAFTR -CATAR OBSCUR VISION Oct-2 6 5 No Information [facility], [address] [place] [address], [id number], [place] tel:[phone] [facility] SURGERY FOLLOW-UPSENI LE NUCLEAR CATARACTMILD STAGE GLAUCOMA Oct- 5 Harmeet Leonardo. [address] [place], [place], [id number], [place]. tel:[phone] [facility], [address] [place] [address], [id number], [place] tel:[phone] [facility] SURGERY FOLLOW-UP 3- 5 Harmeet Leonardo. [address] [place], [place], [id number], [place]. tel:[phone] [facility], [address] [place] [address], [id number], [place] tel:[phone] [facility] SURGERY FOLLOW-UP 0- 5 No Information [facility], [address] [place] [address], [id number], [place] tel:[phone] [facility] SENILE NUCLEAR CATARACTCHALA KAMALJIT 0 - 5 Galkjs Rashawn. [address] [place], [place], [id number], [place]. tel:[phone] [facility], [address] [place] [address], [place], [place], [id number], tel:[phone] [facility] SENILE NUCLEAR CATARACTMACUL AR PUCKERINGSENI LE NUCLEAR CATARACTPRIM OPEN ANGLE GLAUCOMAMILD STAGE GLAUCOMA 5 Pretty Morocho. [address] [place] [address], [id number], . tel:[phone] [facility], [address] [place] [address], [id number], tel:[phone] [facility] PRIM OPEN ANGLE GLAUCOMAINCIP IENT CATARACT 1 No Information [facility] [facility], [address] [place] [address], [id number], tel:[phone] [id number] [facility] PRIM OPEN [place] GLAUCOMAINC[facility] IENT CATARACT 1 No Information Family History Family Member Type Diagnosis Age At Onset Sister Problem glaucoma Father Problem (finding) Glaucoma Maternal aunt Problem Diabetes mellitus Father Problem (finding) Diabetes Paternal aunt Problem Diabetes mellitus Brother Problem Diabetes mellitus Grandmother Problem (finding) Cataract Problem (finding) Fhx of cardiovascular d isease Brother Problem glaucoma Payers Payer name Insurance type Covered democrat ID Helgaa toyapaulette(s) [facility] 16 [id number] Social History Type Description Quantity Date Captured Comments Alcohol Use Details Unknown Caffeine Use Details Unknown Tobacco Use Status No Information Smoking Status No Information Sex Female Chief Complaint And Reason For Visit No Information Reason For Referral Reason For Referral No Information Plan Of Treatment Date Type Action Status Appointment [place] BOOKED Future Order: Radiology Order Ze iss [facility] HD-OCT GAL ([id number]), Sent on: Sent History Of Present Illness Encounter Date Complaint History Of Prese nt Illness Glaucoma The 80 year old patient presents for evaluation of Glaucoma in the right eye and left eye. Pt reports vision is the same. Compliant with drops. taking Brimonidine and Timolol BID OU. Took this morning @ 8:30 ( took only one of them). Denies headaches or brow aches. The symptom is constant. The condition is moderate. redness and itching The patient is present for evaluation of redness and itching in the right eye and left eye. Began years ago. Skin around the eyes are red and irritated. They itch too. Has tried neosporin, cortaid and facial creams, no help. The symptom is constant. The condition is moderate. Glaucoma, followup The 79 year o ld patient presents for evaluation of Glaucoma, followup in the right eye and left eye. The onset was gradual. The symptom is constant. The condition is moderate. S/P SLT OU multiple times. Brim/Andrea BID OU@8am. Pt insurance won't cover combo, switched to seperate drops recently. Irritation, eyelids The patient is present for evaluation of Irritation, eyelids in the right eye and left eye. The symptom is constant. Right eye feels like something is in the eye, maybe another inward lash. Left eye seems to have a new bump. Redness, swelling and slight itching irritation The patient is p resent for evaluation of irritation in the right eye. Pt reports some slight irritation in OD today. May be an eyelash. Hx of Trichiasis. Condition is intermittent. Glaucoma The 79 year old female presents for evaluation of Glaucoma in the right eye and left eye. The onset was gradual. The symptom is constant. The condition is moderate. Pt reports eyes feel tired at the end of the day. Hard to read. No pain or discomfort. Just can't focus. Compliant with Combigan BID OU took @ 8:15 and 10:30. Glaucoma The 78 year old female presents for evaluation of Glaucoma in the right eye and left eye. The condition is moderate. Pt denies any recent eye aches, headaches, and brow aches. VA remains stable per pt. Compliant with Combigan BID OU. Last instilled was today @ 9:30am. Irritation The patient is p resent for evaluation of Irritation in the right eye. Pt reports approx 2 months ago she began noticing a FBS in OD. States after FBS went away but OD remained uncomfortable. States eyelids were itchy and skin underneath OD was red and puffy. Symptom was on and off. Pt reports she used ATs QD but did not find much relief. Pt notes she has been using vitamin E oil and that has soothed symptoms. Denies any pain, crusting, and discharge. Glaucoma The 78 year old female presents for evaluation of Glaucoma in the right eye and left eye. The symptom is constant. The condition is moderate. using combigan OU 2 x d last used last night Glaucoma both eyes, mild, yrs, combigan BID OU, compliant w drops blurry vision both when read e sp PM last few months, comes and goes not happy with glasses The patie nt is present for evaluation of not happy with glasses, reading is not clear, seeing info on TV is blurry Glaucoma The 77 year old female presents for evaluation of Glaucoma in the right eye and left eye. The symptom is constant. The condition is mild. Using Combigan OU 2 x d last used this am Glaucoma F/U The 77 year old female presents for evaluation of Glaucoma F/U in the right eye and left eye, for many years. Patient reports compliance with Brim/Andrea BID OU. Patient denies pain, headaches, and watering. Blurry Vision The patient is p resent for evaluation of Blurry Vision in the right eye and left eye, for many years. Patient reports blurry vision distance and near, some relief from glasses. Patient reports vision seems more blurry lately, I think I need new glasses. Glaucoma The 77 year old female presents for evaluation of Glaucoma in the right eye and left eye. The symptom is constant. The condition is mild. Using Brimomidine-timolol OU 2 x d last used last night, has not felt well this past week Irritation The 77 year old female presents for evaluation of Irritation in the right eye, for the past few weeks. Patient reports irritation OD, it might be a lash, but it feels like something is under my lid (RUL). Patient denies discharge, watering, pain. Patient reports I had a fall on Van Wednesday, but I didn't have to go to the doctor. I was recently dx with Chronic Kidney Disease. Patient reports compliance with Timolol QAM OU, and Travoprost QHS OU, and AT's PRN OU. Glaucoma F/U The 77 year old female presents for evaluation of Glaucoma F/U in the right eye and left eye, for many years. Patient reports compliance with Timolol QD OU, and Travoprost QHS OU. Patient denies pain, headaches, and watering. Blurry Vision The patient is p resent for evaluation of Blurry Vision in the right eye and left eye, for the past few months. Patient reports blurry vision distance, OS worse than OD. Patient reports she will get new glasses after the new year. Irritation The patient is p resent for evaluation of Irritation in the right eye and left eye, for many years. Patient reports lashes seem to be bothering her again, I think they are growing in again. Glaucoma F/U The 76 year old female presents for evaluation of Glaucoma F/U in the right eye and left eye, for many years. Patient reports compliance with Timolol QD OU, and Travatan QHS OU. Patient denies headaches, pain, watering. Irritation The patient is p resent for evaluation of Irritation in the right eye, for the past week. Patient reports irritation RLL, I think it's just an eyelash. Patient denies pain. Blurry Vision The patient is p resent for evaluation of Blurry Vision in the right eye and left eye, for the past 4 months. Patient reports blurry vision while watching TV, I'm not able to see the words on the TV very well. Dry Eye The patient is p resent for evaluation of Dry Eye in the right eye and left eye, for many years. Patient reports dry eyes in the winter, but I haven't felt like I've needed eye drops this summer. Patient reports using AT's PRN OU. Glaucoma, followup The 76 year o ld female presents for evaluation of Glaucoma, followup in the right eye and left eye. The symptom is constant. The condition is moderate. Compliant with Timolol QD OU and Travatan QHS OU. Last dose approx 7 AM. States VA is slightly worse while reading and watching TV. Glaucoma, followup The 76 year o ld female presents for evaluation of Glaucoma, followup in the right eye and left eye. Monitored many years. Moderate stage. Pt using Timolol OU daily & Travatan-Z OU nightly. Last doses: Andrea OU 8am & Travatan-Z OU 10:30 last pm. Glaucoma The 75 year old female presents for evaluation of Glaucoma in the right eye and left eye. The symptom is constant. The condition is moderate. Timolol Q morning OU (last used this morning around 8:00) and Travatan Q evening OU (last used last night around 10:00.) Pt is compliant w gtts. Glaucoma The 75 year old female presents for evaluation of Glaucoma in the right eye and left eye for several years. It occurs with no pattern. The symptom is constant. The condition is mild. Timolol QD OU, last @ approx 7:00am. Travatan QHS OU, last @ approx 10:00pm. Good compliance. 4 Month POAG Exam The 75 year ol d female presents for evaluation of 4 Month POAG Exam in the right eye and left eye. It started about 4 month(s) ago. It occurs all the time. The symptom is constant.Pt denies any new flashes, floaters, or eye painPt indicates taking timolol and travatan, occasionally forgetting to take drops in evening Glaucoma The 74 year old female presents for evaluation of Glaucoma in the right eye and left eye. Many years. Pt compliant with drops, although the after dinner drops pt. admits she sometimes misses. Timolol TID OU, took @ 6:45 am this morning. Travatan Qhs OU @ 10:15 pm last night. Vision is stable. Glaucoma The 74 year old female presents for evaluation of constant, longstanding Glaucoma in both eyes. PT states that she uses Timolol (OU) once a day but forgets to use a second time. PT admits compliance with Travatan nightly (OU). PT feels that VA is unchanged since last visit. 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 Impression/Plan Related to Prima ry open-angle glaucoma, bilateral, moderate stage Impression/Plan Related to PVD ( posterior vitreous detachment), both eyes Impression/Plan Related to Trich iasis without entropion right lower eyelid Impression/Plan 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, bilateral Impression/Plan Related to Prese nce of intraocular lens Impression/Plan Related to Unspe cified ptosis of left eyelid Impression/Plan Related to Prima ry open-angle glaucoma, bilateral, moderate stage Impression/Plan 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 Impression/Plan Related to Trich iasis without entropion right lower eyelid Impression/Plan Related to Chala kamaljit of left upper eyelid Impression/Plan Related to Prima ry open-angle glaucoma, bilateral, moderate stage Impression/Plan Related to Trich iasis without entropion right lower eyelid Impression/Plan 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, bilateral Impression/Plan 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 Impression/Plan Related to Unspe cified ptosis of left eyelid Impression/Plan Related to Prese nce of intraocular lens Impression/Plan Related to Prese nce of intraocular lens Impression/Plan Related to Unspe cified ptosis of left eyelid Impression/Plan 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 Impression/Plan 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, bilateral Impression/Plan Related to Prima ry open-angle glaucoma, bilateral, moderate stage Oct- Impression/Plan Related to Trich iasis without entropion right lower eyelid Impression/Plan Related to Aller gic dermatitis of right lower eyelid Impression/Plan 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 Impression/Plan 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, bilateral Impression/Plan Related to Prima ry open-angle glaucoma, bilateral, moderate stage Impression/Plan Related to Prese nce of intraocular lens Impression/Plan Related to Unspe cified ptosis of left eyelid rtn [address] Jennifer Ga for OCT - OPT N Related to Primary open-angle glaucoma, bilateral, moderate stage Impression/Plan Related to Prese nce of intraocular lens Impression/Plan Related to Prima ry open-angle glaucoma, bilateral, moderate stage Impression/Plan 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 Impression/Plan 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, bilateral Impression/Plan Related to Unspe cified ptosis of left eyelid Impression/Plan 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 Impression/Plan 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, bilateral Impression/Plan Related to Unspe cified ptosis of left eyelid Impression/Plan Related to Prese nce of intraocular lens Impression/Plan Related to Presb yopia Impression/Plan Related to Prima ry open-angle glaucoma, bilateral, moderate stage Impression/Plan Related to Prima ry open-angle glaucoma, bilateral, moderate stage Impression/Plan 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, bilateral Impression/Plan Related to Trich iasis without entropion right lower eyelid Impression/Plan 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 Impression/Plan Related to Unspe cified ptosis of left eyelid Impression/Plan 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, bilateral Impression/Plan Related to Trich iasis without entropion right lower eyelid Impression/Plan Related to Prima ry open-angle glaucoma, bilateral, moderate stage Impression/Plan 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, bilateral Impression/Plan Related to Prima ry open-angle glaucoma, bilateral, moderate stage rtn [address] Jennifer Ga for Optos Related to Primary open-angle glaucoma, bilateral, moderate stage Impression/Plan Related to Prima ry open-angle glaucoma, bilateral, moderate stage Impression/Plan 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 Impression/Plan Related to Unspe cified ptosis of left eyelid Impression/Plan Related to Prese nce of intraocular lens Impression/Plan Related to Prima ry open-angle glaucoma, bilateral, moderate stage rtn [address] Jennifer Ga for Optos Related to Primary open-angle glaucoma, bilateral, moderate stage Impression/Plan Related to Prima ry open-angle glaucoma, bilateral, moderate stage Impression/Plan Related to Trich iasis without entropion right lower eyelid Impression/Plan 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 Impression/Plan Related to Unspe cified ptosis of left eyelid Impression/Plan Related to Prese nce of intraocular lens Impression/Plan Related to Unspe cified subjective visual disturbances rtn [address] Jennifer Ga for OCT - OPT N Related to Primary open-angle glaucoma, bilateral, moderate stage Impression/Plan Related to Prima ry open-angle glaucoma, bilateral, moderate stage Impression/Plan Related to Trich iasis without entropion right lower eyelid Impression/Plan Related to Unspe cified ptosis of left eyelid Impression/Plan 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
[2025-08-16 18:05] VITALS: BP 159/68; PULSE 69; RESP 16; TEMP 35.8; O2SAT 98
--- NOTE | 2025-08-16 18:08 | ED.GENADULT ---
HPI - General Adult General Chief complaint: Extremity Problem,Nontraumatic Stated complaint: RT Hand finger infection Time Seen by Provider: 08/16/25 18:08 Source: patient Mode of arrival: ambulatory Limitations: no limitations History of Present Illness HPI narrative: 80-year-old female patient presents to [facility] with complaints of infection to the tip of the middle finger on the right hand. Patient states redness has been there for couple of days now. Denies fevers body aches or chills. Related Data Home Medications ?Medication ?Instructions ?Recorded ?Confirmed ?Last Taken ?Type amlodipine 5 mg tablet 1.5 mg PO DAILY 11/27/20 11/27/20 Unknown History losartan 100 mg tablet 1 mg PO DAILY 11/27/20 11/27/20 Unknown History timolol maleate 0.5 % eye drops drp 11/27/20 Unknown History travoprost 0.004 % eye drops drp 11/27/20 Unknown History Otc Luicin 11/30/20 Unknown History Otc Vit. D 11/30/20 Unknown History hydrochlorothiazide 12.5 mg tablet 11/30/20 Unknown History Allergies Allergy/AdvReac Type Severity Reaction Status Date / Time No Known Allergies Allergy Unknown Unknown Uncoded 08/16/25 18:17 Review of Systems Review of Systems: CONSTITUTIONAL: Denies fever, chills, or sweats. EYES: Denies visual changes, redness, or discharge. ENT: Denies rhinorrhea, congestion, sore throat, or otalgia. CARDIOVASCULAR: Denies chest pain, palpitations, or edema. RESPIRATORY: Denies cough or dyspnea. GASTROINTESTINAL: Denies abdominal pain, nausea, vomiting, or diarrhea. GENITOURINARY: Denies dysuria or hematuria. SKIN: Denies rash or itching. Positive redness and swelling to right middle finger MUSCULOSKELETAL: Denies back pain, joint pain, or myalgia. NEUROLOGIC: Denies headache, numbness, or weakness. PSYCHIATRIC: Denies anxiety or depression. [facility] Past Medical History Medical History Skin cancer Arthritis Polio TIA (transient ischemic attack) Glaucoma Surgical History Surgical History History of hip replacement H/O: hysterectomy History of appendectomy Hx of cholecystectomy History of tonsillectomy Family History Family History Mother Hypertension Carcinoma of colon Family history of dementia Father Family history of diabetes mellitus in first degree relative Other Family history of renal failure Social History Social History Smoking status: Never smoker Alcohol intake: current Gender identity (if verbalized by the patient): Female Comments At the time of my signature I agree with nursing past medical history, surgical, social, and family history. There is no relevant family history pertinent to the presenting complaint. Exam Narrative: GENERAL: Well-appearing, well-nourished, and in no acute distress. HEAD: Normocephalic, atraumatic. EYES: PERRLA and EOMI. ENT: Nares clear, no rhinorrhea or epistaxis. Mucous membranes moist. NECK: Supple. No lymphadenopathy CHEST: Clear to auscultation. No respiratory distress. HEART: Regular rate and rhythm. No murmur heard. Normal peripheral pulses. ABDOMEN: Soft, nontender, nondistended, normal active bowel sounds. EXTREMITIES: Normal range of motion. No edema. SKIN: Warm, dry, no rash. patient has what appears to be a paronychia to the right middle finger on the lateral side there is some white pus noted with surrounding erythema, warmth and swelling. NEURO: No focal deficits. Alert and oriented x3. Course Course Level of Care: Express Care Visit Vital Signs Vital signs: Vital Signs Temperature 35.8 C L 08/16/25 18:05 Pulse Rate 69 08/16/25 18:05 Respiratory Rate 16 08/16/25 18:05 Blood Pressure 159/68 H 08/16/25 18:05 Pulse Oximetry 98 08/16/25 18:05 Oxygen Delivery Room Air 08/16/25 18:05 Temperature 35.8 C L 08/16/25 18:05 Pulse Rate 69 08/16/25 18:05 Respiratory Rate 16 08/16/25 18:05 Blood Pressure 159/68 H 08/16/25 18:05 Pulse Oximetry 98 08/16/25 18:05 Oxygen Delivery Room Air 08/16/25 18:05 Vital signs reviewed. The patient has been informed that they may have pre-hypertension or Hypertension based on a BP reading in the department. I recommend that the patient call the primary care provider listed on their discharge instructions or a physician of their choice this week to arrange follow up for further evaluation of possible pre-hypertension or Hypertension Procedures Other Procedure Procedure 1: Other Procedure: Paronychia was opened with small scissors and 11 blade scalpel to remove away the nail and open up the pus on the lateral side of the nail bed of the right middle finger. There was some blood and a small amount of white pus removed from the area. Patient did have pain but tolerated the procedure well. The area was soaked with soap and water and cleaned with iodine prior to the procedure. The antibiotic ointment and a Band-Aid was applied postprocedure. MDM MDM Narrative Medical decision making narrative: Discussed with patient that we will discharge her home with a antibiotic ointment she should also do some warm Epson salt soaks 15 minutes each 3 times a day that will help debride away the bacteria. Discussed with patient if the finger continues to worsen and she notices streaks of redness up the finger or into the hand she needs to follow up with her primary doctor. Patient verbalized understanding denies any other questions or concerns at this time. Differential Diagnosis Differential Diagnosis: differential diagnosis: Abscess, cellulitis, hidradenitis, laceration, puncture wound. Discharge Plan Discharge Clinical Impression: Paronychia Patient Disposition: Home Condition: Stable Instructions: Antibiotic Form, Paronychia (ED) Additional Instructions: Paronychia (say [id number]-[id number]-[id number]) is an inflammation of the skin around a fingernail or toenail. It happens when germs enter through a break in the skin. If you had an abscess, your doctor may have made a small cut in the infected area to drain the pus. Most cases of paronychia improve in a few days. But watch your symptoms and follow your doctor's advice. Though rare, a mild case can turn into something more serious and infect your entire finger or toe. Also, it is possible for an infection to return. Follow-up care is a bee part of your treatment and safety.?Be sure to make and go to all appointments, and call your doctor or nurse advice line (811?in most provinces and territories) if you are having problems. It's also a good idea to know your test results and keep a list of the medicines you take. How can you care for yourself at home? If your doctor told you how to care for your infected nail, follow the doctor's instructions. If you did not get instructions, follow this general advice: Wash the area with clean water 2 times a day. Don't use hydrogen peroxide or alcohol, which can slow healing. You may cover the area with a thin layer of antibiotic ointment and a non-stick bandage. Apply more antibiotic ointment and replace the bandage as needed.If your doctor prescribed antibiotics, take them as directed. Do not stop taking them just because you feel better. You need to take the full course of antibiotics.Take an [id number] pain medicine, such as acetaminophen (Tylenol), ibuprofen (Advil, Motrin), or naproxen (Aleve). Read and follow all instructions on the label.Do not take two or more pain medicines at the same time unless the doctor told you to. Many pain medicines have acetaminophen, which is Tylenol. Too much acetaminophen (Tylenol) can be harmful.Prop up the toe or finger so that it is higher than the level of your heart. This will help with pain and swelling.Apply heat. Put a warm water bottle, heating pad set on low, or warm cloth on your finger or toe. Do not go to sleep with a heating pad on your skin.Soak the area in warm water twice a day for 15 minutes each time. After soaking, dry the area well and apply a thin layer of antibiotic ointment. Put on a new bandage. When should you call for help? Call your doctor or nurse advice line now?or seek immediate medical care if: You have signs of new or worsening infection, such as: Increased pain, swelling, warmth, or redness. Red streaks leading from the infected skin. Pus draining from the area. A fever. Patient Language: Persian Prescriptions: New mupirocin [Centany] 2 % ointment 1 applic topical BID Qty: 22 0RF No Action hydrochlorothiazide 12.5 mg tablet Otc Vit. D Otc Luicin clindamycin HCl 300 mg capsule 300 mg PO TID Qty: 21 0RF Rx Instructions: Stop if diarrhea occurs loratadine [Claritin] 10 mg tablet 10 mg PO DAILY Qty: 10 0RF travoprost 0.004 % drops amlodipine 5 mg tablet 1.5 mg PO DAILY timolol maleate 0.5 % drops losartan 100 mg tablet 1 mg PO DAILY prednisone 20 mg tablet 20 mg PO DAILY 5 Days Qty: 5 0RF sulfamethoxazole-trimethoprim [Bactrim DS] 800-160 mg tablet 1 tablet PO Q12H Qty: 10 0RF triamcinolone acetonide 0.025 % cream 1 applic topical BID Qty: 15 0RF Follow-up/Referrals: Juan,DO Chandan [Primary Care Provider] Time of Disposition: 18:38
== END 2025-08-16 19:04 | disposition home or self-care (01) ==
PROVIDERS: Emergency Provider Nurse Practitioner Family; PCP Student in an Organized Health Care Education/Training Program
DX: L03.011 Cellulitis of right finger (principal); M19.90 Unspecified osteoarthritis, unspecified site; H40.9 Unspecified glaucoma; Z90.49 Acquired absence of other specified parts of digestive tract; Z86.73 Personal history of transient ischemic attack (TIA), and cerebral infarction without residual deficits; Z85.828 Personal history of other malignant neoplasm of skin
CPT/HCPCS: 10060; 99213; G0463